=== PATIENT | male | born 1945 | race Caucasian/White ===

== ENCOUNTER 2016-08-11 07:34 | Emergency (ER) | payer OTHER, MEDICARE ==
[2016-08-11 07:39] VITALS: RESP 16
[2016-08-11] MEDS ORDERED: NS 1,000 ML IV ONE (08:14)
[2016-08-11 08:19] LABS: % IMMATURE GRANULYOCYTES 0.2 % (0.0-1.1); ABSOLUTE IMMATURE GRANULOCYTES 0.01 10^3/uL (0.00-0.10); ADD DIFF? NO; ADD MORPH? NO; ADD SCAN? NO; ATYPICAL LYMPHOCYTE FLAG 30 (0-99); FRAGMENT RBC FLAG 0 (0-99); HEMATOCRIT 46.1 % (40.0-51.0); HEMOGLOBIN 15.6 g/dL (13.7-17.5); LEFT SHIFT FLG 0 (0-99); LIPEMIA HEMOLYSIS FLAG 90 (0-99); MEAN CELL HEMOGLOBIN 29.5 pg (27.9-34.1); MEAN CELL HEMOGLOBIN CONCENTR. 33.8 g/dL (32.4-36.7); MEAN CELL VOLUME 87.1 fL (81.5-99.8); MEAN PLATELET VOLUME 9.4 fL (8.7-11.7); PLATELET CLUMPS FLAG 10 (0-99); PLATELET COUNT 253 10^3/uL (150-400); RED BLOOD CELL COUNT 5.29 10^6/uL (4.40-6.38); RED CELL DISTRIBUTION WIDTH 12.9 % (11.5-15.2)
[2016-08-11 08:40] LABS: ALANINE AMINOTRANSFERASE 40 IU/L (21-72); ALBUMIN 3.8 g/dL (3.5-5.0); ALKALINE PHOSPHATASE 47 IU/L (38-126); ANION GAP 11 mEq/L (8-16); ASPARTATE AMINOTRANSFERASE 22 IU/L (17-59); BILIRUBIN,TOTAL 1.3 mg/dL (0.1-1.4); BILIRUBIN-CONJUGATED 0.2 mg/dL (0.0-0.5); BILIRUBIN-UNCONJUGATED 1.1 mg/dL (0.0-1.1); CALCIUM 9.1 mg/dL (8.5-10.4); CARBON DIOXIDE 24 mEq/l (22-31); CHLORIDE 107 mEq/L (97-110); GLOMERULAR FILTRATION RATE > 60; GLUCOSE 92 mg/dL (70-100); POTASSIUM 4.2 mEq/L (3.5-5.2); SODIUM 142 mEq/L (134-144); TOTAL PROTEIN 6.5 g/dL (6.3-8.2)
[2016-08-11] MEDS ORDERED: IOPAMIDOL (ISOVUE-300) 100 ML BTL IV ONE (08:53)
--- NOTE | 2016-08-11 08:54 | EDPHY ---
HPI/HX/ROS/PE/MDM Narrative: Chief complaint: Abdominal pain HPI: 70-year-old male woke this morning feeling well. Patient states that he stretched his back walling in bed and had the sudden onset of severe abdominal pain. Patient has never experienced pain like this before. It was a 10/10. [place] like a sharp pain in the middle of his abdomen. Not radiating to his back. Pain has improved somewhat now down to a 6/10. Did have some nausea. No vomiting. Constipation or diarrhea. No recent illness. No abdominal surgeries in the past. No urinary symptoms. 2 days ago he did have some mild abdominal discomfort, however this resolved and he was completely normal yesterday. No chest pain or shortness of breath. ROS: 10 point Review of Systems is negative except as noted in the HPI. Physical exam: Gen: Awake, Alert, No Distress HEENT: Nose: no rhinorrhea Eyes: PERRLA, EOMI Mouth: Moist mucosa Neck: Supple, no JVD Chest: nontender, lungs clear to auscultation Heart: S1, S2 normal, no murmur Abd: Soft, moderate periumbilical to epigastric tenderness. He has a palpable pulsating abdominal aorta which he states is his usual, no guarding Back: no CVA tenderness, no midline tenderness Ext: no edema, non-tender Skin: no rash Neuro: CN II-XII intact, Sensation grossly intact, Strength 5/5 in bilateral upper and lower extremities ED Course: EC sinus rhythm with a rate of 66, normal axis, normal intervals, no ST or T-wave changes. Impression: Normal ECG. CT abdomen and pelvis: Interpreted by Dr. Peralta. No acute intra- abdominal process to explain his pain. He does have some constipation, otherwise negative CT abdomen pelvis. Patient is improved. Does not want any further medications. Does not have evidence of obstruction, infection, inflammation, or aortic process in his abdomen right now. His blood work is normal. Urinalysis is unremarkable. Symptoms are likely secondary to constipation. Will discharge to home with follow-up. Patient states he has magnesium citrate at home. Will recommend that he start on MiraLax as well. Patient Ventolin return to the emergency department old 24 hours for recheck if symptoms are not improving. - Data Points Laboratory Results: Laboratory Results 08/11/16 07:55 08/11/16 07:55 08/11/16 08/11/16 09:25 07:55 WBC 4.83 10^3/uL (3.80-9.50) RBC 5.29 10^6/uL (4.40-6.38) Hgb 15.6 g/dL (13.7-17.5) Hct 46.1 % (40.0-51.0) MCV 87.1 fL (81.5-99.8) MCH 29.5 pg (27.9-34.1) MCHC 33.8 g/dL (32.4-36.7) RDW 12.9 % (11.5-15.2) Plt Count 253 10^3/uL (150-400) MPV 9.4 fL (8.7-11.7) Neut % (Auto) 50.5 % (39.3-74.2) Lymph % (Auto) 34.6 % (15.0-45.0) Mccone % (Auto) 9.5 % (4.5-13.0) Eos % (Auto) 4.6 % (0.6-7.6) Baso % (Auto) 0.6 % (0.3-1.7) Nucleat RBC Rel Count 0.0 % (0.0-0.2) Absolute Neuts (auto) 2.44 10^3/uL (1.70-6.50) Absolute Lymphs (auto) 1.67 10^3/uL (1.00-3.00) Absolute Monos (auto) 0.46 10^3/uL (0.30-0.80) Absolute Eos (auto) 0.22 10^3/uL (0.03-0.40) Absolute Basos (auto) 0.03 10^3/uL (0.02-0.10) Absolute Nucleated RBC 0.00 10^3/uL (0-0.01) Immature Gran % 0.2 % (0.0-1.1) Immature Gran # 0.01 10^3/uL (0.00-0.10) Sodium 142 mEq/L (134-144) Potassium 4.2 mEq/L (3.5-5.2) Chloride 107 mEq/L (97-110) Carbon Dioxide 24 mEq/l (22-31) Anion Gap 11 mEq/L (8-16) BUN 16 mg/dL (7-23) Creatinine 1.0 mg/dL (0.7-1.3) Estimated GFR > 60 Glucose 92 mg/dL (70-100) Calcium 9.1 mg/dL (8.5-10.4) Total Bilirubin 1.3 mg/dL (0.1-1.4) Conjugated Bilirubin 0.2 mg/dL (0.0-0.5) Unconjugated Bilirubin 1.1 mg/dL (0.0-1.1) AST 22 IU/L (17-59) ALT 40 IU/L (21-72) Alkaline Phosphatase 47 IU/L (38-126) Troponin I < 0.012 ng/mL (0-0.034) Total Protein 6.5 g/dL (6.3-8.2) Albumin 3.8 g/dL (3.5-5.0) Lipase 104.0 IU/L (23-300) Urine Color YELLOW Urine Appearance CLEAR Urine pH 5.0 (5.0-7.5) Ur Specific [place] 1.040 H (1.002-1.030) Urine Protein NEGATIVE (NEGATIVE) Urine Ketones NEGATIVE (NEGATIVE) Urine Blood NEGATIVE (NEGATIVE) Urine Nitrate NEGATIVE (NEGATIVE) Urine Bilirubin NEGATIVE (NEGATIVE) Urine Urobilinogen NEGATIVE EU (0.2-1.0) Ur Leukocyte Esterase NEGATIVE (NEGATIVE) Urine Glucose NEGATIVE (NEGATIVE) Medications Given: Discontinued Medications Sodium Chloride (Ns) 1,000 mls @ 0 mls/hr IV ONCE ONE PRN Reason: Wide Open Stop: 08/11/16 08:15 Last Admin: 08/11/16 08:15 Dose: 1,000 mls General Time Seen by Provider: 08/11/16 07:56 Initial Vital Signs: Initial Vital Signs Heart Rate 62 08/11/16 07:36 Respiratory Rate 16 08/11/16 07:36 Blood Pressure 126/78 H 08/11/16 07:36 O2 Sat (%) 99 08/11/16 07:36 O2 Delivery Mode Room Air Allergies/Adverse Reactions: Opioids - Morphine Analogues Allergy (Verified 08/11/16 07:39) Departure - Departure Disposition: Home, Routine, Self-Care Clinical Impression: Abdominal pain, Constipation Condition: Good Instructions: Acute Abdominal Pain (ED), Constipation (ED) Additional Instructions: Please start taking MiraLax [id number] for your constipation. You may use magnesium citrate, drink half a bottle. If no bowel movements after 1 hour drink the 2nd half of the bottle. Follow up with your primary care doctor in 2-3 days if you're still having any discomfort. His symptoms get worse or do not improve return emergency department 12-24 hours for recheck. Referrals: Leticia Porras MD [Primary Care Provider] - As per Instructions
--- NOTE | 2016-08-11 09:00 | CPEKG ---
Heart Rate: 66 RR Interval: 909 P-R Interval: 188 QRSD Interval: 96 QT Interval: 424 QTC Interval: 445 P [place]: 82 QRS [place]: 68 T Wave [place]: 48 EKG Severity - NORMAL ECG - EKG Impression: SINUS RHYTHM Electronically Signed By: Arron Najera 12-Aug-2016 14:41:00
[2016-08-11 09:38] LABS: COLOR YELLOW; LEUKOCYTE ESTERASE,URINE NEGATIVE (NEGATIVE); NITRITE,URINE NEGATIVE (NEGATIVE)
--- NOTE | 2016-08-11 10:45 | CT ---
"Contrast Enhanced CT Scan of the Abdomen and Pelvis Clinical History: 70-year-old male presenting to the ED with periumbilical and upper abdominal pain. Rule out small bowel obstruction. Technique: Neither oral nor retrograde rectal contrast was administered. Following the uncomplicated intravenous administration of 90 mL of Isovue 300, a multidetector helical CT scan was obtained from the lung bases inferiorly through the proximal femora, with images reformatted at 5.00 and 1.50 mm in crements, and reviewed at a variety of window and level settings. Parasagittal and paracoronal recons tructed images are reviewed on the workstation. The DFOV is 34.4 cm. Dose reduction techniques were u tilized. Comparison Study: Contrast-enhanced CT scan of the abdomen dated 11/03/2015. Findings: Contrast-Enhanced CT Scan of the Abdomen: The lung bases are notable for some mild subsegmental atele ctasis at the posterior right lung base, and a linear calcified granuloma at the right costophrenic a ngle. There is no pleural effusion. The visualized cardiac chambers and pericardium are unremarkable. Two of 3 previously-documented flash-filling hemangiomas are once again seen (series 4, image 34 and image 53). The spleen, gallbladder, bile ducts, pancreas, adrenal glands, and the kidneys are normal in appearance. The aorta tapers normally, and the IVC is normal in caliber. There is no ascites or f ree air. There is a tiny hiatal hernia present. There is no evidence of a small bowel obstruction. Th ere is moderate constipation. There is no pneumoperitoneum. Contrast-Enhanced CT Scan of the Pelvis: There are no masses, free fluid, or free air. The bladder martinez s a normal contour. There is normal enhancement of the vasculature. The soft tissues are normal in ap pearance. The patient has had a prostatectomy. There is some calcification associated with the semina l vesicles. Numerous phleboliths are identified. The appendix is noted to arise off the medial portio n of the cecum, and is best seen on coronal series 5, images 25-27, and is normal. Skeletal System: There is a benign hemangioma seen in the left L3 centrum. There is some facet hypert rophy at the lumbosacral junction. A minor ventral concavity at T12 is unchanged, with ventral tracti on spurs. There is a mild levolumbar scoliosis. Impression: 1. 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 2. There is no evidence of a small bowel obstruction. 3. Moderate constipation. 4. Status post prostatectomy. Results were called to Dr. Jose D Becerra. A test result has been communicated to a licensed care provider and documented in the [employer] | Critical Result system on 08/11/2016 10:24, Message ID [id number]."
[2016-08-11 11:24] VITALS: BP 138/76; PULSE 72; TEMP 97.7; O2SAT 97
== END 2016-08-11 11:24 | disposition home or self-care (01) ==
DX: K59.00 Constipation, unspecified (principal)
CPT/HCPCS: 74177; 93005; 96360; 99285; Q9967

== ENCOUNTER → 2017-07-26 | Outpatient (CLI) | payer OTHER, MEDICARE | LOC: BMCIMAGING 15:09 | PROVIDERS: ATTEND Family Medicine | DX: S22.080D Wedge compression fracture of T11-T12 vertebra, subsequent encounter for fracture with routine healing (principal); M40.204 Unspecified kyphosis, thoracic region; M51.34 Other intervertebral disc degeneration, thoracic region ==

== ENCOUNTER → 2017-10-13 | Outpatient (CLI) | payer OTHER, MEDICARE | LOC: BMCIMAGING 12:48 | PROVIDERS: ATTEND Family Medicine | DX: R91.8 Other nonspecific abnormal finding of lung field (principal) ==

== ENCOUNTER → 2018-10-01 | Outpatient (CLI) | payer OTHER, MEDICARE | LOC: BMCIMAGING 15:29 | PROVIDERS: ATTEND Family Medicine | DX: M41.85 Other forms of scoliosis, thoracolumbar region (principal); M53.86 Other specified dorsopathies, lumbar region; M25.78 Osteophyte, vertebrae ==